=== PATIENT | female | born 1940 | race Caucasian/White ===

== ENCOUNTER 2018-02-16 11:00 | Inpatient (IN) | payer OTHER ==
[~2018-02-16] VITALS: Ht 147.3 cm; Wt 54.4 kg
[2018-02-16 11:01] VITALS: BP 151/86
[2018-02-16] MEDS ORDERED: XARELTO20 MG PO (11:10)
[2018-02-16] MEDS ORDERED: OMEPRAZOLE20 M1 PO (11:10)
[2018-02-16] MEDS ORDERED: ZOCOR40 MG PO (11:11)
[2018-02-16] MEDS ORDERED: LAMICTAL XR100 MG PO (11:11)
[2018-02-16] MEDS ORDERED: UNICOMPLEX M TA1 TA1 PO (11:11)
[2018-02-16] MEDS ORDERED: DETROL2 M1 PO (11:12)
[2018-02-16] MEDS ORDERED: VITAMINC500 PO (11:13)
[2018-02-16] MEDS ORDERED: CALCIUM 600 +1 EAC1 PO (11:14)
[2018-02-16] MEDS ORDERED: POTASSIUM20 PO (11:15)
[2018-02-16] MEDS ORDERED: TOBRADEX EYE DRO5 ML OPHTHALMIC (11:17)
[2018-02-16] MEDS ORDERED: EYE DROP TEARS15 ML OPHTHALMIC (11:18)
[2018-02-16] MEDS ORDERED: TYLENOL325 MG PO (11:18)
[2018-02-16] MEDS ORDERED: MACRODANTIN100 MG PO (11:19)
[2018-02-16 11:22] LABS: HEMOGLOBIN 12.7 gm/dL (12.0-15.0); MCH 33.6 pg (26.0-34.0); MCHC 33.3 g/dL (28.0-37.0); MCV 101.1 fL (80.0-100.0); MPV 9.3 fl. (7.2-11.1); NUCLEATED RBCS 0 /100WBC; PLATELET COUNT* 218 thou/uL (150-400); RBC 3.76 mil/uL (4.20-5.00); RDW-CV 13.8 % (10.5-14.5); WBC 12.9 thou/uL (4.0-11.0)
[2018-02-16 11:35] LABS: BE -2.7 mmol/L (-2 to +3); HCO3 20.3 mmol/L (22.0-26.0); PCO2 29.9 mmHg (35.0-45.0); PO2 80.9 mmHg (75.0-100.0); pH 7.449 (7.340-7.450)
[2018-02-16 11:35] LABS: APTT 39.3 Seconds (25.0-31.3); INR 1.2; PROTIME 12.4 Seconds (9.20-11.50)
[2018-02-16 11:40] LABS: URINE BILIRUBIN NEGATIVE (Negative); URINE BLOOD 3+ (Negative); URINE CLARITY CLEAR; URINE COLOR YELLOW; URINE GLUCOSE-RANDOM NEGATIVE (Negative); URINE KETONES NEGATIVE (Negative); URINE LEUKOCYTES-REFLEX NEGATIVE (Negative); URINE NITRITE-REFLEX NEGATIVE (Negative); URINE PROTEIN 2+ (Negative); URINE UROBILINOGEN 0.2 E.U./dl (0.2-1.0)
[2018-02-16 11:48] LABS: BACTERIA-REFLEX 1-9 Few /HPF (None Seen); CRYSTALS None Seen /LPF (None Seen); HYALINE CASTS 4-10 Moderate /LPF (None Seen); MUCUS 0-3 Light strn/LPF (None Seen); SQUAMOUS 0-3 Few /LPF (0-3); URINE RBC >20 Many /HPF (0-2); URINE WBC-REFLEX 0-5 Rare /HPF (0-5)
[2018-02-16 12:01] LABS: ABSOLUTE EOSINOPHILS 0.5 thou/uL (0.0-0.7); ABSOLUTE LYMPHOCYTES 0.9 thou/uL (0.8-5.3); ABSOLUTE MONOCYTES 0.1 thou/uL (0.0-1.2); ABSOLUTE NEUTROPHILS 11.4 thou/uL (1.6-8.1)
[2018-02-16 12:02] LABS: PLATELET ESTIMATE ADEQUATE
[2018-02-16 12:45] LABS: ALBUMIN 2.9 g/dL (3.4-5.0); CALCIUM 8.2 mg/dL (8.5-10.1); CREATININE 0.7 mg/dL (0.6-1.3); MAGNESIUM 2.1 mg/dL (1.8-2.4); TOTAL BILIRUBIN 0.4 mg/dL (<0.1-1.0); TOTAL PROTEIN 6.7 g/dL (6.4-8.2)
[2018-02-16 15:11] VITALS: BP 173/77
[2018-02-16 16:00] VITALS: BP 127/85
--- NOTE | 2018-02-16 17:09 | 2DMMODE ---
[place] [address] 2 D/M-MODE ECHOCARDIOGRAM Name: KATYAMAREK Lazaro Room: [address] IN [facility]#: [id number] Admission: 02/16/18 Attend Phys: Antonio Champion, Discharge: Date of : 40 Date of Service: 02/16/18 1709 Report #: [id number] THIS REPORT FOR: //name// APPROVED REPORT Study performed: 02/16/2018 16:14:08 EXAM: Comprehensive 2D, Doppler, and color-flow Echocardiogram Patient Location: In-Patient Room #: [facility] Status: routine BSA: 1.47 HR: 83 bpm BP: 113/77 mmHg Rhythm: NSR Other Information Study Quality: Good Indications CVA/TIA Echo Enhancing Agent Indication: Rule out Shunt Agent(s) / Amount(s) Used: Agitated Saline 10 cc 2D Dimensions IVSd: 13.52 (7-11mm) LVOT Diam: 19.66 (18-24mm) LVDd: 34.00 mm PWd: 9.78 (7-11mm) Ascending Ao: 27.39 (22-36mm) LVDs: 18.05 (25-40mm) Aortic Root: 31.19 mm Volumes Left Atrial Volume (Systole) LA ESV Index: 23.60 mL/m2 Aortic Valve AoV Peak Jarrod.: 1.52 m/s AO Peak Gr.: 9.26 mmHg LVOT Max P.26 mmHg AO Mean Gr.: 5.28 mmHg LVOT Mean P.50 mmHg LVOT Max V: 1.15 m/s AO V2 VTI: 24.52 cm LVOT Mean V: 0.73 m/s SHIRLEY (VTI): 2.65 cm2 LVOT V1 VTI: 21.41 [place] [address] 2 D/M-MODE ECHOCARDIOGRAM Name: MAREK TRUJILLO Room: [address] IN ..#: [id number] Admission: 02/16/18 Attend Phys: Antonio Champion, Discharge: Date of : 40 Date of Service: 02/16/18 1709 Report #: [id number] Mitral Valve E/A Ratio: 0.55 MV Decel. Time: 178.19 ms MV E Max Jarrod.: 0.57 m/s MV PHT: 51.67 ms MVA (PHT): 4.26 cm2 TDI E/Lateral E': 9.50 E/Medial E': 7.13 Medial E' Jarrod.: 0.08 m/s Lateral E' Jarrod.: 0.06 m/s Pulmonary Valve PV Peak Jarrod.: 0.87 m/s PV Peak Gr.: 3.01 mmHg Left Ventricle The left ventricle is normal size. There is normal LV segmental wall motion. There is normal left ventricular wall thickness. Left ventricular systolic function is normal. LVEF is 65-70%. Grade I - abnormal relaxation pattern. Right Ventricle The right ventricle is normal size. The right ventricular systolic function is normal. Atria The left atrium size is normal. Interatrial septum is intact without evidence of ASD or PFO. The right atrium size is normal. Aortic Valve Mild aortic valve sclerosis. No aortic regurgitation is present. There is no aortic valvular stenosis. Mitral Valve There is mitral annular calcification. Mild mitral regurgitation. No evidence of mitral valve stenosis. Tricuspid Valve The tricuspid valve is normal in structure. Unable to assess PA pressure. Trace tricuspid regurgitation. Pulmonic Valve The pulmonary valve is normal in structure. There is no pulmonic valvular regurgitation[place] [address] 2 D/M-MODE ECHOCARDIOGRAM Name: MAREK TRUJILLO Room: [address] IN [facility]#: [id number] Admission: 02/16/18 Attend Phys: Antonio Champion, Discharge: Date of : 40 Date of Service: 02/16/18 1709 Report #: [id number] The aortic root is normal in size. IVC is normal in size and collapses >50% with inspiration. Pericardium There is no pericardial effusion. <Conclusion> The left ventricle is normal size. There is normal left ventricular wall thickness. Left ventricular systolic function is normal. LVEF is 65-70%. Grade I - abnormal relaxation pattern. Interatrial septum is intact without evidence of ASD or PFO. Mild mitral regurgitation. Trace tricuspid regurgitation. IVC is normal in size and collapses >50% with inspiration. <ELECTRONICALLY SIGNED> By: Aric Bailey MD, FACC 02/16/181708 08 08 Aric Bailey MD, FACC /INF
[2018-02-16 20:00] VITALS: BP 115/52
[2018-02-16 21:07] LABS: GLYCOHEMOGLOBIN (HGB A1C) 5.4 % (4.8-5.6)
[2018-02-17] VITALS (7 sets, daily range): BP systolic 123–157; BP diastolic 67–97
[2018-02-17 04:47] LABS: ABSOLUTE EOSINOPHILS 0.7 thou/uL (0.0-0.7); ABSOLUTE LYMPHOCYTES 1.5 thou/uL (0.8-5.3); ABSOLUTE MONOCYTES 1.4 thou/uL (0.0-1.2); ABSOLUTE NEUTROPHILS 4.9 thou/uL (1.6-8.1); BASOPHILS 0.1 %; EOSINOPHILS 8.8 %; HEMATOCRIT 32.8 % (37.0-47.0); HEMOGLOBIN 11.1 gm/dL (12.0-15.0); LYMPHOCYTES 17.5 %; MCH 34.4 pg (26.0-34.0); MCHC 33.9 g/dL (28.0-37.0); MCV 101.5 fL (80.0-100.0); MONOCYTES 16.7 %; MPV 9.1 fl. (7.2-11.1); NUCLEATED RBCS 0 /100WBC; PLATELET COUNT* 208 thou/uL (150-400); POLYS 56.9 %; RBC 3.23 mil/uL (4.20-5.00); WBC 8.6 thou/uL (4.0-11.0)
[2018-02-17 05:02] LABS: CHOLESTEROL 143 mg/dL (<200); HDL CHOLESTEROL 80 mg/dL (>40); LDL CHOLESTEROL 51 mg/dL (<100); TC:HDL 1.8 Ratio (Not establshd); TRIGLYCERIDE 63 mg/dL (<150); VLDL 13 mg/dL (<40)
[2018-02-17 05:04] LABS: CALCIUM 8.6 mg/dL (8.5-10.1); CREATININE 0.6 mg/dL (0.6-1.3); POTASSIUM 3.9 mmol/L (3.5-5.1)
[2018-02-17 05:10] LABS: SERUM ASSESSMENT CLEAR
[2018-02-18 00:45] VITALS: BP 115/70
[2018-02-18 04:36] VITALS: BP 155/69; BP 174/63
[2018-02-18 07:55] VITALS: BP 156/78
[2018-02-18] MEDS ORDERED: LAMICTAL100 MG PO (08:54)
[2018-02-18 08:55] VITALS: BP 156/78
[2018-02-18] MEDS ORDERED: ZOLOFT25 MG PO (11:30)
[2018-02-18] MEDS ORDERED: CEFUROXIME500 MG PO (11:30)
[2018-02-18] MEDS ORDERED: VERAPAMIL ER180 MG PO (12:49)
[2018-02-18 13:10] VITALS: BP 145/68
--- NOTE | 2018-02-18 15:41 | EKG ---
[place] [address] ELECTROCARDIOGRAM REPORT Name: MAREK TRUJILLO Room: [address] DIS IN M.R.#: [id number] Admission: 02/16/18 Attend Phys: Antonio Champion MD Discharge: 02/18/18 Date of : 40 Report #: [id number] THIS REPORT FOR: //name// [facility] Test Date: 2018-02-18 Test Time: 09:33:21 Pat Name: MAREK TRUJILLO Department: Room: [address] Gender: F Wax Molder: [facility] : 1940 Requested By: Antonio Champion Order Number: [id number] Reading MD: Aric Bailey Measurements Intervals [place] Rate: 147 P: [place]: QRS: -39 QRSD: 105 T: 78 QT: 300 QTc: 470 Interpretive Statements Supraventricular tachycardia LVH with secondary repolarization abnormality Inferior infarct, old No previous ECG available for comparison Electronically Signed On 02-18-2018 15:41:09 [employer]ICER by Aric Bailey [email or web address] <ELECTRONICALLY SIGNED> By: Aric Bailey MD, [facility] 02/18/18 1541 0933 0933 Aric Bailey MD, [facility] /EPI
--- NOTE | 2018-02-19 10:12 | CON ---
[address] [address] CONSULTATION Name: SHRUTHISimónCHINOAPARNAMAREK Lazaro Room: [address] IN .R.#: [id number] Admission: 02/16/18 Attend Phys: Antonio Champion MD Discharge: 02/18/18 Date of : 40 Report #: [id number] THIS REPORT FOR: //name// CC: Antonio Champion [facility] physician/PCP DATE OF SERVICE: 02/18/2018 INDICATION: SVT. HISTORY OF PRESENT ILLNESS: The patient is a 78-year-old white female who was admitted to the hospital with altered mental status. While hospitalized, she had episodes of supraventricular tachycardia noted on telemetry. These episodes lasted as long as one hour and resolved spontaneously. The patient reports having similar episodes at home for the past several months. The patient denies any lightheadedness, dizziness, or syncope with these episodes. She was not having significant chest pain. She was without other cardiac complaint. PAST MEDICAL HISTORY: 1. Hypertension. 2. Dementia. 3. Anemia. 4. UTI. 5. Seizures. 6. 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 FAMILY HISTORY: Noncontributory. SOCIAL HISTORY: The patient quit smoking remotely. She does not drink alcohol. REVIEW OF SYSTEMS: Noncontributory. PHYSICAL EXAMINATION: VITAL SIGNS: Stable. Blood pressure 156/78, pulse 78 and regular. GENERAL: This is a pleasant elderly female, in no distress. HEENT: Head is normocephalic, atraumatic. Extraocular muscles intact. Mucous membranes moist. NECK: Shows no jugular venous distention. There are no carotid bruits. CHEST: Reveals clear lung del rosario without wheezes or rales. CARDIAC: Reveals regular rhythm, normal S1 and S2. I do not appreciate murmur or gallop. ABDOMEN: Reveals normal bowel sounds. The abdomen is soft and nontender. EXTREMITIES: Shows no edema. SKIN: Warm, dry. IMPRESSION AND RECOMMENDATIONS: [place] [address] CONSULTATION Name: MAREK TRUJILLO Room: [address] IN .R.#: [id number] Admission: 02/16/18 Attend Phys: Antonio Champion MD Discharge: 02/18/18 Date of : 40 Report #: [id number] 1. Supraventricular tachycardia. Start verapamil extended release 180 mg daily. 2. Hypertension, mildly elevated at present. The addition of verapamil should help improve this. Follow up as an outpatient. <ELECTRONICALLY SIGNED> By: Aric Bailey MD, FACC 02/19/18 1012 1202 [id number] Bailey MD, FACC /nt
--- NOTE | 2018-02-23 10:58 | CON ---
[address] [address] CONSULTATION Name: CASSANDRAJARA Room: [address] IN M.R.#: [id number] Admission: 02/16/18 Attend Phys: Antonio Champion MD Discharge: 02/18/18 Date of : 40 Report #: [id number] THIS REPORT FOR: //name// CC: Antonio Champion [facility] physician/PCP DATE OF SERVICE: 02/17/2018 HISTORY OF PRESENT ILLNESS: This is a 78-year-old female patient who was evaluated by me for a complicated history. It looks like she started having episode of passing out where she would be found on the floor about 5 years ago. She lived in [place] and she was reevaluated there. They did an EEG, which was abnormal. I do not have any of the records, but she was started on Lamictal. She continued to be on Lamictal and looks like she is taking 300 mg of Lamictal in two divided dosages. This patient has multiple strokes and multiple episodes of TIA. The problem is, from the history it becomes difficult to tell which ones were stroke and which ones were non-convulsive seizures. She did have a CT scan of the head here. CT scan of the head demonstrated multiple old strokes in this patient. Her first stroke has caused her hemianopsia. It is not clear how did the other stroke affect. REVIEW OF SYSTEMS: Indicate that this patient has been on anticoagulation because of her atrial fibrillation as I understand from the family. She has multiple CVA and she has a poor memory. Memory checking is difficult because she does not speak Haitian fluently. She lives in a small town in [place] and she was visiting here. Family is concerned with expenses and what will insurance cover, and what will they not cover. At one time she used to be on alternate medication, but that caused mood disturbances. It is not clear what mood disturbances were caused and what medication it was, but it may have been Keppra. She is not certain and the records are in [place]. She has been diagnosed with dementia. She has left visual deficit. She does have slight anemia. A 14-point review of systems was carried out and it was relevant for the above described points. PAST MEDICAL HISTORY: Positive for stroke, seizures and what looks like vascular dementia. FAMILY HISTORY: Negative for early age strokes. SOCIAL HISTORY: She used to smoke, but does not smoke now. Apparently, she does not drink alcohol on a regular basis. PHYSICAL EXAMINATION: Difficult. This is because of the language barrier. She is alert. She is responsive. She can follow simple commands[place] [address] CONSULTATION Name: KATYATejasJARA Room: [address] IN M.R.#: [id number] Admission: 02/16/18 Attend Phys: Antonio Champion MD Discharge: 02/18/18 Date of : 40 Report #: [id number] intact. Memory and fund of knowledge is difficult, but I cannot quantitate. Cranial nerve examination does appear to be showing left hemianopsia, but visual field deficit may be more than just hemianopsia. As far as strength is concerned that looks mostly symmetrical. I believe her position sense is intact, but she does have some injury to the left ankle in the past and it is difficult to be certain. I could not look at the fundus. She is thinly built individual whose hearing and vision looks adequate. She has no thyroid mass. Her blood pressure is 156/70, pulse is 74, temperature is 98.5. LABORATORY DATA: WBC count is 8.6. I reviewed the patient's workup. Her CT scan shows multiple strokes, but they are old. Carotid Doppler does not appear to be showing any hemodynamically significant stenosis. She has no respiratory difficulty and she has a history of atrial fibrillation. IMPRESSION: This patient is here for episode of altered mental status. The main differential in this patient is that she has stroke and she has dementia and she may be having subclinical seizures. She is also predisposed to have more strokes. Her EEG is pending and we will look at that. Unfortunately, EEG is not able to pickling operator all the seizures and even if the EEG is negative, the possibility that these are non-convulsive seizures needs to be considered. RECOMMENDATION: I had a long talk with this patient's daughter. I suggested an MRI. She is not sure about getting the MRI done because of the insurance reason and wants to get that done in [place]. All the records are there in the [place]. So I asked her to think about it and if she wants to proceed with it she will let the nurses know. MRI will be on Monday until we make it stat and Emergency and daughter would like the patient to be in the hospital as little as possible. This patient needs to be on anticonvulsant. Her seizure medications need to be readjusted. We can increase the Lamictal and I will suggest doing that. The problem with that is that Lamictal will decrease the effect of Xarelto. The good alternative is Keppra. However, the patient's daughter thinks she has tried that and that has caused some mood disturbances, which Keppra can do that. The other alternative can also interact with anticoagulation in this patient. We will let the patient's family decide and if they want to proceed with it, my recommendation will be to get an MRI and MRA done to complete the workup and see if there is any acute stroke. If there are none, then I will suggest increasing the Lamictal. [place] thing will be to change Lamictal to something like Keppra, but because of the prior side effects the family will not like to do that. Lamictal has in fact helped her mood changes and the family would like to stick with it. We will let the family think about it, but we will go ahead and increase the Lamictal for the time being. More than 50 minutes of time was spent taking care of [place] [address] CONSULTATION Name: MAREK TRUJILLO Room: [address] IN [facility].#: [id number] Admission: 02/16/18 Attend Phys: Antonio Champion MD Discharge: 02/18/18 Date of : 40 Report #: [id number] majority of that time was spent counseling the patient and the daughter and coordinating her care. Her images were reviewed and the patient was also discussed with Dr. Champion. <ELECTRONICALLY SIGNED> By: Bienvenido Rivas MD 02/23/18 1058 1122 1151Praul Rivas MD /nt
--- NOTE | 2018-02-23 10:58 | EEG ---
[address] [address] EEG STUDY REPORT Name: MAREK TRUJILLO Room: [address] IN M.R.#: [id number] Admission: 02/16/18 Attend Phys: Antonio Champion MD Discharge: 02/18/18 Date of : 40 Report #: [id number] THIS REPORT FOR: //name// CC: Antonio Champion [facility] physician/PCP DATE OF SERVICE: 02/17/2018 This patient is being evaluated for seizure activity. The EEG was done by placing the electrode by standard 10-20 system of electrode placement. Both referential and sequential montages were used for recording. Background activity in this patient's EEG is about 9 Hz and 30 microvolt. The patient went to sleep that is associated with bilaterally symmetrical sleep spindle and vertex sharp waves. The patient's EEG continued to demonstrate isolated sharper activity arising predominantly from the left frontal area. This was isolated activity. Hyperventilation was not carried out. IMPRESSION: This patient's EEG demonstrates isolated sharper activity coming from the left frontal area. That is a nonspecific abnormality, which can occur with seizure disorder in that focus. However, strong clinical correlation is recommended. <ELECTRONICALLY SIGNED> By: Bienvenido Rivas MD 02/23/18 1058 1322 [id number] Rivas MD /aquiles
== END 2018-02-18 13:30 | disposition home or self-care (01) | DRG 308 ==
LOC: M.ERS 11:00 → M.TBA-ER 13:49 → M.2W 13:49
PROVIDERS: Personal Emergency Response Attendant; ADMIT Internal Medicine
DX: I47.1 Supraventricular tachycardia (principal); R65.11 Systemic inflammatory response syndrome (SIRS) of non-infectious origin with acute organ dysfunction; G93.40 Encephalopathy, unspecified; I50.32 Chronic diastolic (congestive) heart failure; G40.909 Epilepsy, unspecified, not intractable, without status epilepticus; I11.0 Hypertensive heart disease with heart failure; I48.91 Unspecified atrial fibrillation; I87.8 Other specified disorders of veins; F01.50 Vascular dementia, unspecified severity, without behavioral disturbance, psychotic disturbance, mood disturbance, and anxiety; Z79.82 Long term (current) use of aspirin; Z86.73 Personal history of transient ischemic attack (TIA), and cerebral infarction without residual deficits; Z87.891 Personal history of nicotine dependence; Z79.01 Long term (current) use of anticoagulants; Z79.899 Other long term (current) drug therapy